=== PATIENT | female | born 1980 | race Caucasian/White ===

== ENCOUNTER 2016-12-25 10:07 | Emergency (ER) | payer OTHER ==
[2016-12-25 10:02] LABS: BILIRUBIN NEGATIVE (NEGATIVE); BLOOD NEGATIVE Ery/uL (NEGATIVE); CLARITY CLEAR (CLEAR); COLOR STRAW (YELLOW); GLUCOSE (U) NORMAL (NORMAL); KETONE (U) NEGATIVE (NEGATIVE); LEUKOCYTES NEGATIVE Leu/uL (NEGATIVE); NITRITE NEGATIVE (NEGATIVE); PROTEIN NEGATIVE (NEGATIVE); SPECIFIC GRAVITY <=1.005 (1.001-1.030); UROBILINOGEN 0.2 mg/dL (0.2-1.0)
[2016-12-25 11:32] LABS: BASOPHIL 0.3 % (0-2); EOSINOPHIL 1.1 % (0-5); HCT 40.2 % (37.0-47.0); HGB 13.4 g/dl (12.5-16.0); LYMPHOCYTE 26.2 % (15-48); MCH 30.8 pg (25.0-31.0); MCHC 33.3 g/dL (32.0-36.0); MCV 92.4 fL (78.0-100.0); MPV 11.6 fL (6.0-9.5); NEUTROPHIL 67.4 % (41-80); PLT 179 K/uL (150-400); RBC 4.35 M/uL (4.20-5.40); RDW 12.8 % (11.5-14.0); WBC 6.5 K/uL (4.0-10.5)
[2016-12-25 11:48] LABS: ALBUMIN 4.4 g/dL (3.5-5.0); BILIRUBIN - TOTAL 0.3 mg/dL (0.1-1.0); CREATININE 0.7 mg/dL (0.5-1.0); POTASSIUM 4.2 mmol/L (3.5-5.1); TOTAL PROTEIN 6.4 g/dL (6.4-8.3)
== END 2016-12-25 12:40 | disposition home or self-care (01) ==
LOC: FER 10:07
PROVIDERS: Emergency Medicine
DX: K59.00 Constipation, unspecified (principal); M54.5 Low back pain; R42 Dizziness and giddiness; F17.210 Nicotine dependence, cigarettes, uncomplicated; Z84.1 Family history of disorders of kidney and ureter; Z90.49 Acquired absence of other specified parts of digestive tract
CPT/HCPCS: 36415; 80053; 81003; 85025; J2270